=== PATIENT | male | born 2000 | race American Indian/Alaskan Native ===

== ENCOUNTER 2019-09-25 03:32 | Emergency (ER) | payer SELFPAY ==
[2019-09-25 04:08] LABS: CHLORIDE,CL 101 mmol/L (101-111); SODIUM,NA 136 mmol/L (135-145)
[2019-09-25] MEDS ORDERED: Sodium Chloride 0.9% 1,000 ML IV ONE (04:10)
[2019-09-25] MEDS ORDERED: Iopamidol 612 MG/ML 75 ML Bottle IVPUSH ONE (04:10)
--- NOTE | 2019-09-25 04:12 | EDM.PDOC ---
ED HPI GENERAL MEDICAL PROBLEM - General Chief Complaint: Abdominal Pain Stated Complaint: STOMACH PAIN Time Seen by Provider: 09/25/19 04:11 Source of Information: Reports: Patient History Limitations: Reports: No Limitations - History of Present Illness INITIAL COMMENTS - FREE TEXT/NARRATIVE: onset abd pain since noon yesterday. nauseous no vomiting/diarrhoea. Abdomen Pain Score (Numeric/FACES): 10 - Related Data Allergies Allergy/AdvReac Type Severity Reaction Status Date / Time No Known Allergies Allergy Verified 09/25/19 03:37 Home Meds: Home Meds . [No Known Home Meds] 09/25/19 [History] Past Medical History - Past Health History Medical/Surgical History: Denies Medical/Surgical History Social & Family History - Tobacco Use Smoking Status *Q: Current Every Day Smoker Years of Tobacco use: 5 Packs/Tins Daily: 0.2 - Caffeine Use Caffeine Use: Reports: Soda - Recreational Drug Use Recreational Drug Use: No - Living Situation & Occupation Living situation: Reports: with Family Occupation: Student ED ROS GENERAL - Review of Systems Review Of Systems: ROS reveals no pertinent complaints other than HPI. ED EXAM, GI/ABD - Physical Exam Exam: See Below Exam Limited By: No Limitations General Appearance: Alert, WD/WN, Mild Distress, Moderate Distress. No: Active Emesis Ears: Hearing Grossly Normal Throat/Mouth: Normal Voice, No Airway Compromise Head: Atraumatic Neck: Non-Tender, Full Range of Motion Respiratory/Chest: No Respiratory Distress Cardiovascular: Regular Rate, Rhythm GI/Abdominal Exam: Guarding, Rebound, Tender, Other (RLQ>periumb). No: Distended, Rigid Neurological: Alert, Oriented, Normal Cognition, Normal Gait, No Motor/Sensory Deficits Psychiatric: Tearful Skin Exam: Warm, Dry, Normal Color Lymphatic: No Adenopathy Course - Vital Signs Last Recorded V/S: Last Vital Signs Temp 36.8 C 09/25/19 03:38 Pulse 72 09/25/19 04:59 Resp 16 09/25/19 04:59 BP 122/61 09/25/19 03:38 Pulse Ox 100 09/25/19 04:59 - Orders/Labs/Meds Orders: Active Orders 24 hr Category Date Time Status Abdomen Pelvis w Cont [CT] Urgent Exams 09/25/19 04:10 Taken Labs: Laboratory Tests 09/25/19 09/25/1919 Range/Units 03:38 03:38 03:38 WBC 12.4 H (5.0-10.0) 10^3/uL RBC 5.41 (4.6-6.2) 10^6/uL Hgb 16.7 D (14.0-18.0) g/dL Hct 47.3 (40.0-54.0) % MCV 87.4 (80-100) fL MCH 30.9 (27.0-34.0) pg MCHC 35.3 H (33.0-35.0) g/dL Plt Count 270 D (150-450) 10^3/uL Neut % (Auto) 68.1 (42.2-75.2) % Lymph % (Auto) 17.0 L (20.5-50.1) % [place] % (Auto) 11.5 H (2-8) % Eos % (Auto) 3.2 H (1.0-3.0) % Baso % (Auto) 0.2 (0.0-1.0) % Sodium 136 (135-145) mmol/L Potassium 4.0 (3.6-5.0) mmol/L Chloride 101 (101-111) mmol/L Carbon Dioxide 30.0 (21.0-31.0) mmol/L Anion Gap 9.0 BUN 9 (7-18) mg/dL Creatinine 0.8 (0.6-1.3) mg/dL Est Cr Clr Drug Dosing 117.84 mL/min Estimated GFR (MDRD) > 60 BUN/Creatinine Ratio 11.25 Glucose 96 (74-105) mg/dL Calcium 8.9 (8.4-10.2) mg/dl Total Bilirubin 0.6 (0.2-1.0) mg/dL AST 23 (10-42) IU/L ALT 29 (10-60) IU/L Alkaline Phosphatase 99 (42-121) IU/L Total Protein 7.7 (6.7-8.2) g/dl Albumin 4.2 (3.2-5.5) g/dl Globulin 3.5 Albumin/Globulin Ratio 1.20 Amylase 103 H (28-100) U/L Lipase 33 (22-51) U/L Urine Color (YELLOW) Urine Appearance (CLEAR) Urine pH (5.0-9.0) Ur Specific [place] (1.005-1.030) Urine Protein (NEGATIVE) Urine Glucose (UA) (NEGATIVE) Urine Ketones (NEGATIVE) Urine Occult Blood (NEGATIVE) Urine Nitrite (NEGATIVE) Urine Bilirubin (NEGATIVE) Urine Urobilinogen (0.2-1.0) mg/dL Ur Leukocyte Esterase (NEGATIVE) Urine Opiates Screen (NEGATIVE) Ur Oxycodone Screen (NEGATIVE) Urine Methadone Screen (NEGATIVE) Ur Barbiturates Screen (NEGATIVE) U Tricyclic Antidepress (NEGATIVE) Ur Phencyclidine Scrn (NEGATIVE) Ur Amphetamine Screen (NEGATIVE) U Methamphetamines Scrn (NEGATIVE) Urine MDMA Screen (NEGATIVE) U Benzodiazepines Scrn (NEGATIVE) Urine Cocaine Screen (NEGATIVE) U Marijuana (THC) Screen (NEGATIVE) 09/25/19 09/25/19 Range/Units 04:55 04:55 WBC (5.0-10.0) 10^3/uL RBC (4.6-6.2) 10^6/uL Hgb (14.0-18.0) g/dL Hct (40.0-54.0) % MCV (80-100) fL MCH (27.0-34.0) pg MCHC (33.0-35.0) g/dL Plt Count (150-450) 10^3/uL Neut % (Auto) (42.2-75.2) % Lymph % (Auto) (20.5-50.1) % [place] % (Auto) (2-8) % Eos % (Auto) (1.0-3.0) % Baso % (Auto) (0.0-1.0) % Sodium (135-145) mmol/L Potassium (3.6-5.0) mmol/L Chloride (101-111) mmol/L Carbon Dioxide (21.0-31.0) mmol/L Anion Gap BUN (7-18) mg/dL Creatinine (0.6-1.3) mg/dL Est Cr Clr Drug Dosing mL/min Estimated GFR (MDRD) BUN/Creatinine Ratio Glucose (74-105) mg/dL Calcium (8.4-10.2) mg/dl Total Bilirubin (0.2-1.0) mg/dL AST (10-42) IU/L ALT (10-60) IU/L Alkaline Phosphatase (42-121) IU/L Total Protein (6.7-8.2) g/dl Albumin (3.2-5.5) g/dl Globulin Albumin/Globulin Ratio Amylase (28-100) U/L Lipase (22-51) U/L Urine Color Yellow (YELLOW) Urine Appearance Clear (CLEAR) Urine pH 7.0 (5.0-9.0) Ur Specific [place] 1.015 (1.005-1.030) Urine Protein Negative (NEGATIVE) Urine Glucose (UA) Negative (NEGATIVE) Urine Ketones Negative (NEGATIVE) Urine Occult Blood Negative (NEGATIVE) Urine Nitrite Negative (NEGATIVE) Urine Bilirubin Negative (NEGATIVE) Urine Urobilinogen 1.0 (0.2-1.0) mg/dL Ur Leukocyte Esterase Negative (NEGATIVE) Urine Opiates Screen Negative (NEGATIVE) Ur Oxycodone Screen Negative (NEGATIVE) Urine Methadone Screen Negative (NEGATIVE) Ur Barbiturates Screen Negative (NEGATIVE) U Tricyclic Antidepress Negative (NEGATIVE) Ur Phencyclidine Scrn Negative (NEGATIVE) Ur Amphetamine Screen Positive H (NEGATIVE) U Methamphetamines Scrn Positive H (NEGATIVE) Urine MDMA Screen Negative (NEGATIVE) U Benzodiazepines Scrn Negative (NEGATIVE) Urine Cocaine Screen Negative (NEGATIVE) U Marijuana (THC) Screen Positive H (NEGATIVE) Meds: Medications Discontinued Medications Generic Name Dose Route Start Last Admin Trade Name Surinder PRN Reason Stop Dose Admin Hydromorphone HCl 1 mg 09/25/19 05:05 Dilaudid IVPUSH 09/25/19 05:06 ONETIME ONE Sodium Chloride 1,000 mls @ 999 mls/hr 09/25/19 04:10 09/25/19 04:12 Normal Saline IV 09/25/19 05:10 999 mls/hr .BOLUS ONE Administration Iopamidol 75 ml 09/25/19 04:10 09/25/19 04:22 Isovue-300 (61%) IVPUSH 09/25/19 04:11 75 ml ONETIME ONE Administration Ondansetron HCl 4 mg 09/25/19 05:05 09/25/19 05:10 Zofran IV 09/25/19 05:06 4 mg ONETIME ONE Administration - Re-Assessments/Exams Free Text/Narrative Re-Assessment/Exam: 09/25/19 05:[address] Schmidt surgeon @ who kindly accepted pt. Departure - Departure Time of Disposition: 05:18 Disposition: DC/Tfer to Acute Hospital 02 Condition: Good Clinical Impression: Appendicitis Qualifiers: Appendicitis type: acute appendicitis Acute appendicitis type: with localized peritonitis Appendicitis gangrene presence: without gangrene Appendicitis perforation presence: without perforation Appendicitis abscess presence: without abscess Qualified Code(s): K35.30 - Acute appendicitis with localized peritonitis, without perforation or gangrene - Discharge Information Forms: Interfacility Transfer EMTALA - My Orders Last 24 Hours: My Active Orders 09/25/19 04:10 Abdomen Pelvis w Cont [CT] Urgent - Assessment/Plan Last 24 Hours: My Active Orders 09/25/19 04:10 Abdomen Pelvis w Cont [CT] Urgent
[2019-09-25] MEDS ORDERED: Ondansetron 4 MG/2 ML SDV IV ONE (05:05)
[2019-09-25] MEDS ORDERED: HYDROmorphone 1 MG/ML Syringe IVPUSH ONE (05:05)
[2019-09-25 06:17] VITALS: PULSE 68
[2019-09-25 06:18] VITALS: BP 122/63
== END 2019-09-25 06:08 ==
LOC: DL.ED 03:32
DX: K35.30 Acute appendicitis with localized peritonitis, without perforation or gangrene (principal); F17.210 Nicotine dependence, cigarettes, uncomplicated
CPT/HCPCS: 36415; 74177; 80053; 80305; 81003; 82150; 83690; 85025; 96360; 96374; 96375; 99285; J1170; J2405; J7030; Q9967; 99284

== ENCOUNTER 2019-09-28 11:43 | Emergency (ER) | payer SELFPAY ==
--- NOTE | 2019-09-28 09:52 | EDM.PDOC ---
ED HPI GENERAL MEDICAL PROBLEM - General Chief Complaint: Abdominal Pain Stated Complaint: AMBULANCE/ABDOMINAL PAIN Time Seen by Provider: 09/28/19 09:55 Source of Information: Reports: Patient History Limitations: Reports: No Limitations - History of Present Illness INITIAL COMMENTS - FREE TEXT/NARRATIVE: This 19 yo male patient was brought to the ED by [facility] from the [facility] due to increased abdominal pain and abdominal rigidity. The patient reports his current pain is an 8/10 mostly in the left lower quadrant. The patient was given Zofran and Fentanyl by EMS prior to arrival. The patient reports his pain was a 10/10 prior to the medications given by EMS. The patient was sent to in [place] on Wednesday (09/25/19) due to an acute appendicitis. The patient had an appendectomy on that day and was released from on 09/25/19 after surgery. The patient reports he was released with a script for Oxycodone (5/325) #10. The patient reports he has been taking 1/2 of a pill every 6 hours and they have helped him sleep, but is currently out of pain medications. The patient reports he has not had a bowel movement since before surgery on 09/25/19. Onset: Gradual Onset Date: 09/25/19 Duration: Constant Location: Reports: Abdomen (LLQ) Quality: Reports: Ache, Pressure Severity: Severe Improves with: Reports: Medication (Pain medications given by EMS) Worsens with: Reports: None Context: Reports: Other Associated Symptoms: Reports: Nausea/Vomiting (Nausea no vomiting improved after Zofran (given by EMS)) Left Lower Abdomen Pain Score (Numeric/FACES): 8 - Related Data Allergies Allergy/AdvReac Type Severity Reaction Status Date / Time No Known Allergies Allergy Verified 09/28/19 09:37 Home Meds: Home Meds Docusate Sodium [Stool Softener] 50 mg PO 09/28/19 [History] Ibuprofen 600 mg PO Q6HR PRN 09/28/19 [History] oxyCODONE 2.5 mg PO Q6HR PRN 09/28/19 [History] Past Medical History - Past Health History Medical/Surgical History: Denies Medical/Surgical History Social & Family History - Caffeine Use Caffeine Use: Reports: Soda - Living Situation & Occupation Living situation: Reports: with Family Occupation: Student ED ROS GENERAL - Review of Systems Review Of Systems: ROS reveals no pertinent complaints other than HPI. ED EXAM, GI/ABD - Physical Exam Exam: See Below Exam Limited By: No Limitations General Appearance: Alert, WD/WN, Moderate Distress, Thin Eyes: Bilateral: Normal Appearance (sluggish, but reactive), EOMI Ears: Normal External Exam, Normal Canal, Hearing Grossly Normal, Normal TMs Nose: Normal Inspection, Normal Mucosa, No Blood Throat/Mouth: Normal Inspection, Normal Lips, Normal Teeth, Normal Gums, Normal Oropharynx, Normal Voice, No Airway Compromise Head: Atraumatic, Normocephalic Neck: Normal Inspection, Supple, Non-Tender, Full Range of Motion Respiratory/Chest: No Respiratory Distress, Lungs Clear, Normal Breath Sounds, No Accessory Muscle Use, Chest Non-Tender Cardiovascular: Normal Peripheral Pulses, Regular Rate, Rhythm, No Edema, No Gallop, No JVD, No Murmur, No Rub GI/Abdominal Exam: Normal Bowel Sounds, No Abnormal Bruit, No Mass, Pelvis Stable, Guarding, Rigid, Tender (LLQ), Other (Surgical incision sites look to be healing well with no current erythema or drainage. ) (Male) Exam: Deferred Rectal (Males) Exam: Deferred Back Exam: Normal Inspection, Full Range of Motion, NT Extremities: Normal Inspection, Normal Range of Motion, Non-Tender, Normal Capillary Refill, No Pedal Edema Neurological: Alert, Oriented, CN II-XII Intact, Normal Cognition, Normal Gait, Normal Reflexes, No Motor/Sensory Deficits Psychiatric: Normal Affect, Normal Mood Skin Exam: Warm, Dry, Intact, Normal Color, No Rash Lymphatic: No Adenopathy Course - Vital Signs Last Recorded V/S: Last Vital Signs Temp 37.0 C 09/28/19 11:32 Pulse 88 09/28/19 11:32 Resp 18 09/28/19 11:32 BP 104/50 L 09/28/19 11:32 Pulse Ox 98 09/28/19 11:32 - Orders/Labs/Meds Orders: Active Orders 24 hr Category Date Time Status Communication Order [RC] ROUTINE Care 09/28/19 10:14 Active Abdomen Pelvis w Cont [CT] Urgent Exams 09/28/19 10:34 Ordered Labs: Laboratory Tests 09/28/19 09/28/19 09/28/19 Range/Units 09:50 09:50 09:50 WBC 11.3 H (5.0-10.0) 10^3/uL RBC 5.14 (4.6-6.2) 10^6/uL Hgb 15.8 (14.0-18.0) g/dL Hct 44.9 (40.0-54.0) % MCV 87.4 (80-100) fL MCH 30.7 (27.0-34.0) pg MCHC 35.2 H (33.0-35.0) g/dL Plt Count 244 (150-450) 10^3/uL Neut % (Auto) 76.7 H (42.2-75.2) % Lymph % (Auto) 10.3 L (20.5-50.1) % [place] % (Auto) 11.2 H (2-8) % Eos % (Auto) 1.6 (1.0-3.0) % Baso % (Auto) 0.2 (0.0-1.0) % Sodium 137 (135-145) mmol/L Potassium 3.7 (3.6-5.0) mmol/L Chloride 103 (101-111) mmol/L Carbon Dioxide 26.0 (21.0-31.0) mmol/L Anion Gap 11.7 BUN 7 (7-18) mg/dL Creatinine 0.7 (0.6-1.3) mg/dL Est Cr Clr Drug Dosing 137.16 mL/min Estimated GFR (MDRD) > 60 BUN/Creatinine Ratio 10.00 Glucose 93 (74-105) mg/dL Lactic Acid 1.0 (0.5-2.2) mmol/L Calcium 8.7 (8.4-10.2) mg/dl Total Bilirubin 0.7 (0.2-1.0) mg/dL AST 27 (10-42) IU/L ALT 35 (10-60) IU/L Alkaline Phosphatase 73 (42-121) IU/L Total Protein 6.8 (6.7-8.2) g/dl Albumin 3.6 (3.2-5.5) g/dl Globulin 3.2 Albumin/Globulin Ratio 1.13 Urine Color (YELLOW) Urine Appearance (CLEAR) Urine pH (5.0-9.0) Ur Specific [place] (1.005-1.030) Urine Protein (NEGATIVE) Urine Glucose (UA) (NEGATIVE) Urine Ketones (NEGATIVE) Urine Occult Blood (NEGATIVE) Urine Nitrite (NEGATIVE) Urine Bilirubin (NEGATIVE) Urine Urobilinogen (0.2-1.0) mg/dL Ur Leukocyte Esterase (NEGATIVE) Urine Opiates Screen (NEGATIVE) Ur Oxycodone Screen (NEGATIVE) Urine Methadone Screen (NEGATIVE) Ur Barbiturates Screen (NEGATIVE) U Tricyclic Antidepress (NEGATIVE) Ur Phencyclidine Scrn (NEGATIVE) Ur Amphetamine Screen (NEGATIVE) U Methamphetamines Scrn (NEGATIVE) Urine MDMA Screen (NEGATIVE) U Benzodiazepines Scrn (NEGATIVE) Urine Cocaine Screen (NEGATIVE) U Marijuana (THC) Screen (NEGATIVE) 09/28/19 09/28/19 Range/Units 10:38 10:38 WBC (5.0-10.0) 10^3/uL RBC (4.6-6.2) 10^6/uL Hgb (14.0-18.0) g/dL Hct (40.0-54.0) % MCV (80-100) fL MCH (27.0-34.0) pg MCHC (33.0-35.0) g/dL Plt Count (150-450) 10^3/uL Neut % (Auto) (42.2-75.2) % Lymph % (Auto) (20.5-50.1) % [place] % (Auto) (2-8) % Eos % (Auto) (1.0-3.0) % Baso % (Auto) (0.0-1.0) % Sodium (135-145) mmol/L Potassium (3.6-5.0) mmol/L Chloride (101-111) mmol/L Carbon Dioxide (21.0-31.0) mmol/L Anion Gap BUN (7-18) mg/dL Creatinine (0.6-1.3) mg/dL Est Cr Clr Drug Dosing mL/min Estimated GFR (MDRD) BUN/Creatinine Ratio Glucose (74-105) mg/dL Lactic Acid (0.5-2.2) mmol/L Calcium (8.4-10.2) mg/dl Total Bilirubin (0.2-1.0) mg/dL AST (10-42) IU/L ALT (10-60) IU/L Alkaline Phosphatase (42-121) IU/L Total Protein (6.7-8.2) g/dl Albumin (3.2-5.5) g/dl Globulin Albumin/Globulin Ratio Urine Color Yellow (YELLOW) Urine Appearance Clear (CLEAR) Urine pH 6.5 (5.0-9.0) Ur Specific [place] 1.015 (1.005-1.030) Urine Protein Negative (NEGATIVE) Urine Glucose (UA) Negative (NEGATIVE) Urine Ketones Negative (NEGATIVE) Urine Occult Blood Negative (NEGATIVE) Urine Nitrite Negative (NEGATIVE) Urine Bilirubin Negative (NEGATIVE) Urine Urobilinogen 0.2 (0.2-1.0) mg/dL Ur Leukocyte Esterase Negative (NEGATIVE) Urine Opiates Screen Negative (NEGATIVE) Ur Oxycodone Screen Positive H (NEGATIVE) Urine Methadone Screen Negative (NEGATIVE) Ur Barbiturates Screen Negative (NEGATIVE) U Tricyclic Antidepress Negative (NEGATIVE) Ur Phencyclidine Scrn Negative (NEGATIVE) Ur Amphetamine Screen Positive H (NEGATIVE) U Methamphetamines Scrn Positive H (NEGATIVE) Urine MDMA Screen Negative (NEGATIVE) U Benzodiazepines Scrn Negative (NEGATIVE) Urine Cocaine Screen Negative (NEGATIVE) U Marijuana (THC) Screen Positive H (NEGATIVE) Meds: Medications Discontinued Medications Generic Name Dose Route Start Last Admin Trade Name Freq PRN Reason Stop Dose Admin Hydromorphone HCl 0.5 mg 09/28/19 09:58 09/28/19 10:04 Dilaudid IVPUSH 09/28/19 09:59 0.5 mg ONETIME ONE Administration Iopamidol 75 ml 09/28/19 10:34 09/28/19 11:17 Isovue-300 (61%) IVPUSH 09/28/19 10:35 75 ml ONETIME ONE Administration Ketorolac Tromethamine 30 mg 09/28/19 11:38 Toradol IVPUSH 09/28/19 11:39 ONETIME ONE - Re-Assessments/Exams Free Text/Narrative Re-Assessment/Exam: 09/28/19 11:07 The patient was advised of the lab results during the visit. When the patient was advised of his drug screen results (positive for amphetamines, methamphetamines and marijuana), the patient reports he was smoking a "joint" a couple of days ago that "tasted strange." The patient was advised that using methamphetamines can cause additional complications which can result in a delay of his healing. A CT of the patient's abdomen was ordered at that time. Departure - Departure Time of Disposition: 11:40 Disposition: Home, Self-Care 01 Condition: Fair Clinical Impression: Postoperative generalized abdominal pain - Discharge Information *PRESCRIPTION DRUG MONITORING PROGRAM REVIEWED*: Not Applicable *COPY OF PRESCRIPTION DRUG MONITORING REPORT IN PATIENT SENTHIL: Not Applicable Forms: ED Department Discharge Care Plan Goals: The patient and family were advised of the examination, lab and CT results during the visit. The patient was given an IV dose of dilaudid and an IV dose of Toradol while in the ED. The patient was encouraged to use warm packs to his abdomen. The patient was encouraged to take Tylenol or ibuprofen for temporary symptom relief. If the patient has any additional symptoms or concerns, the patient should either visit his primary care facility or return to the emergency department. - My Orders Last 24 Hours: My Active Orders 09/28/19 10:14 Communication Order [RC] ROUTINE 09/28/19 10:34 Abdomen Pelvis w Cont [CT] Urgent - Assessment/Plan Last 24 Hours: My Active Orders 09/28/19 10:14 Communication Order [RC] ROUTINE 09/28/19 10:34 Abdomen Pelvis w Cont [CT] Urgent
[2019-09-28] MEDS: HYDROmorphone 1 MG/ML Syringe IVPUSH ONE (10:04)
[2019-09-28 10:18] LABS: ANION GAP 11.7; CHLORIDE,CL 103 mmol/L (101-111); SODIUM,NA 137 mmol/L (135-145)
[2019-09-28] MEDS: Iopamidol 612 MG/ML 75 ML Bottle IVPUSH ONE (11:17)
[2019-09-28 11:34] VITALS: BP 104/50; PULSE 88
[2019-09-28] MEDS: Ketorolac 30 MG/ML SDV IVPUSH ONE (11:43)
--- NOTE | 2019-09-28 12:14 | CT ---
EXAMINATION: Abdomen Pelvis w Cont SEX: Male AGE: 19 years CLINICAL HISTORY: 19-year-old male 4 days post appendectomy complaining of left sided ABDOMINAL PAIN. This slender afebrile postop patient has a WBC 11,500. Scan technique: Volume acquisition of data emergency CT scan abdomen and pelvis obtained without oral contrast but during intravenous infusion 75 cc nonionic Isovue contrast (4 cc/s via injector) while patient was lying supine on the Siemens multislice scanner [place], [place]. All data archived in the PACS system for storage, reformatting axial/sagittal/coronal planes and study. Interpretation: 1. *Long elliptical extraperitoneal collection of SUBCUTANEOUS air (anterior abdominal wall) extending over 16 cm length, anterolaterally, left abdomen (from a plane through the mid pelvis up through the lower costochondral juncture on the left). 2. Large volume persistent free intraperitoneal air around the upper abdominal viscera and lower abdomen (surgical clips RLQ). 3. No abdominal soft tissue mass or suggestion of abscess. No mechanical bowel obstruction. 4. Gallbladder, liver, stomach, spleen, pancreas and adrenal glands unremarkable. 5. Normal reniform size, axis and configuration. No renal cortical mass lesion, nephrolithiasis or obstructive uropathy. 6. Normal caliber aortoiliac vessels. Lumbar spine unremarkable. Normal bladder. 7. Normal cardiac silhouette. Lung bases clear. CONCLUSION: Postoperative (iatrogenic) subcutaneous air left abdomen and intraperitoneal air. Surgical clips RLQ consistent with recent appendectomy. No sign of mechanical bowel obstruction or acute peritonitis. Lung bases clear.
== END 2019-09-28 11:53 | disposition home or self-care (01) ==
LOC: DL.ED 11:43
DX: G89.18 Other acute postprocedural pain (principal); R10.84 Generalized abdominal pain
CPT/HCPCS: 36415; 74177; 80053; 80305; 81003; 83605; 85025; 96374; 96375; 99285; J1170; J1885; Q9967

== ENCOUNTER 2020-04-22 16:11 | Emergency (ER) | payer SELFPAY ==
[2020-04-22 16:25] VITALS: BP 107/80; PULSE 97
[2020-04-22] MEDS ORDERED: Bacitracin Oint 1 GM U/D Packet TOP ONE (16:37)
[2020-04-22] MEDS ORDERED: Lidocaine 1% 30 ML SDV INJECT ONE (16:37)
--- NOTE | 2020-04-22 17:10 | EDM.PDOC ---
Scribed by Dasha Frank 04/22/20 1710 for Na Silvestre NP ED HPI GENERAL MEDICAL PROBLEM - General Chief Complaint: Laceration Stated Complaint: laceration on left hand Time Seen by Provider: 04/22/20 16:30 Source of Information: Reports: Patient, RN, RN Notes Reviewed History Limitations: Reports: No Limitations - History of Present Illness INITIAL COMMENTS - FREE TEXT/NARRATIVE: Patient presents to ER with complaint that he has a cut to the left pointer finger. States he was making a tattoo gun when he slipped and cut the finger. States tetanus is up to date. States it was a straight blade clean kitchen knife. Onset: Today Location: Reports: Upper Extremity, Left Quality: Reports: Ache Severity: Mild Improves with: Reports: None Worsens with: Reports: None Associated Symptoms: Reports: No Other Symptoms left first digit Pain Score (Numeric/FACES): 10 - Related Data Allergies Allergy/AdvReac Type Severity Reaction Status Date / Time No Known Allergies Allergy Verified 04/22/20 16:29 Home Meds: Home Meds . [No Known Home Meds] 04/22/20 [History] Past Medical History - Past Health History Medical/Surgical History: Denies Medical/Surgical History Social & Family History - Caffeine Use Caffeine Use: Reports: Soda - Living Situation & Occupation Living situation: Reports: with Family Occupation: Student ED ROS GENERAL - Review of Systems Review Of Systems: Comprehensive ROS is negative, except as noted in HPI. ED EXAM, SKIN/RASH Exam: See Below Exam Limited By: No Limitations General Appearance: Alert, WD/WN, No Apparent Distress Eye Exam: Bilateral Eye: EOMI, Normal Inspection, PERRL Ears: Normal External Exam, Normal Canal, Hearing Grossly Normal, Normal TMs Nose: Normal Inspection, Normal Mucosa, No Blood Throat/Mouth: Normal Inspection, Normal Lips, Normal Teeth, Normal Gums, Normal Oropharynx, Normal Voice, No Airway Compromise Head: Atraumatic, Normocephalic Neck: Normal Inspection, Supple, Non-Tender, Full Range of Motion Respiratory/Chest: No Respiratory Distress, Lungs Clear, Normal Breath Sounds, No Accessory Muscle Use, Chest Non-Tender Cardiovascular: Normal Peripheral Pulses, Regular Rate, Rhythm, No Edema, No Gallop, No JVD, No Murmur, No Rub GI/Abdominal: Normal Bowel Sounds, Soft, Non-Tender, No Organomegaly, No Distention, No Abnormal Bruit, No Mass (Male) Exam: Deferred Rectal (Males) Exam: Deferred Back Exam: Normal Inspection, Full Range of Motion, NT Extremities: Other (see skin) Neurological: Alert, Oriented, CN II-XII Intact, Normal Cognition, Normal Gait, Normal Reflexes, No Motor/Sensory Deficits Psychiatric: Normal Affect, Normal Mood Skin: Warm, Dry, Other (3cm laceration to the left index finger) Location, Skin: Upper Extremity, Left Lymphatic: No Adenopathy ED SKIN PROCEDURES - Laceration/Wound Repair Left Lateral Digit - 2nd (Index) Appearance: Subcutaneous Distal NVT: Neuro & Vascular Intact Anesthetic Type: Local Local Anesthesia - Lidocaine (Xylocaine): 1% Plain Local Anesthetic Volume: 2cc Skin Prep: Chlorhexidine (Hibiciens) Exploration/Debridement/Repair: Wound Explored, In a Bloodless Field, Explored to Base, No Foreign Material Found Closed with: Sutures Lac/Wound length In cm: 3 Suture Size: 4-0 # of Sutures: 7 Suture Type: Nylon, Interrupted Drain Placement: No Sterile Dressing Applied: Nurse Tetanus Status Addressed: Yes Complications: No Course - Vital Signs Last Recorded V/S: Last Vital Signs Temp 98.8 F 04/22/20 16:24 Pulse 97 04/22/20 16:24 Resp 16 04/22/20 16:24 BP 107/80 04/22/20 16:24 Pulse Ox 97 04/22/20 16:24 - Orders/Labs/Meds Meds: Medications Discontinued Medications Generic Name Dose Route Start Last Admin Trade Name Surinder PRN Reason Stop Dose Admin Bacitracin 1 dose 04/22/20 16:37 04/22/20 16:54 Bacitracin Oint 1 Gm TOP 04/22/20 16:38 1 dose ONETIME ONE Administration Lidocaine HCl 30 ml 04/22/20 16:37 04/22/20 16:53 Xylocaine-Mpf 1% INJECT 04/22/20 16:38 2 ml ONETIME ONE Administration Departure - Departure Time of Disposition: 17:09 Disposition: Home, Self-Care 01 Condition: Good Clinical Impression: Laceration - Discharge Information *PRESCRIPTION DRUG MONITORING PROGRAM REVIEWED*: No *COPY OF PRESCRIPTION DRUG MONITORING REPORT IN PATIENT SENTHIL: No Instructions: Laceration Care, Adult, [id number], Sutures, [place], or Adhesive Wound Closure, [id number] Forms: ED Department Discharge Additional Instructions: Keep area clean and dry Follow up with your primary care facility in 7-10 days to have sutures removed Monitor for signs of infection (redness, swelling, drainage, fever or chills) Sepsis Event Note - Focused Exam Vital Signs: Vital Signs Temp Pulse Resp BP Pulse Ox 04/22/20 16:24 98.8 F 97 16 107/80 97 Date Exam was Performed: 04/22/20 Time Exam was Performed: 17:10 I have read and agree with the documentation that has been completed regarding this visit. By signing this record, I attest that the documentation was completed in my physical presence and is an accurate record of the encounter.
== END 2020-04-22 17:20 | disposition home or self-care (01) ==
LOC: DL.ED 16:11
DX: S61.211A Laceration without foreign body of left index finger without damage to nail, initial encounter (principal); W26.0XXA Contact with knife, initial encounter
CPT/HCPCS: 12002; 12032; 99282; 99282-25; J2001

== ENCOUNTER 2022-05-09 21:33 | Emergency (ER) | payer SELFPAY ==
[2022-05-09] MEDS ORDERED: Bacitracin Oint 1 GM U/D Packet TOP ONE (21:42)
[2022-05-09] MEDS ORDERED: Lidocaine 1% 30 ML SDV ONE (21:47)
[2022-05-09 21:49] VITALS: BP 114/82; PULSE 89
[2022-05-09] MEDS ORDERED: Lidocaine 1% 30 ML SDV INJECT ONE (21:52)
== END 2022-05-09 22:08 | disposition home or self-care (01) ==
LOC: DL.ED 21:33
DX: S61.512A Laceration without foreign body of left wrist, initial encounter (principal); F17.210 Nicotine dependence, cigarettes, uncomplicated; W26.8XXA Contact with other sharp object(s), not elsewhere classified, initial encounter; Y92.009 Unspecified place in unspecified non-institutional (private) residence as the place of occurrence of the external cause
CPT/HCPCS: 12002; 99282-25; 99283

== ENCOUNTER 2022-07-15 17:58 | Emergency (ER) | payer SELFPAY ==
[2022-07-15] MEDS: Bacitracin Oint 1 GM U/D Packet TOP ONE (18:45)
[2022-07-15 19:16] VITALS: BP 163/76; PULSE 71
[2022-07-15 20:16] LABS: CHLORIDE,CL 104 mmol/L (98-107); SODIUM,NA 141 mmol/L (136-145)
[2022-07-15 20:35] LABS: ESTIMATED GFR 77 mL/min (>=60)
== END 2022-07-15 19:57 | disposition left against medical advice (07) ==
LOC: DL.ED 17:58
DX: S06.5X0A Traumatic subdural hemorrhage without loss of consciousness, initial encounter (principal); S01.01XA Laceration without foreign body of scalp, initial encounter; S81.812A Laceration without foreign body, left lower leg, initial encounter; S41.112A Laceration without foreign body of left upper arm, initial encounter; F17.210 Nicotine dependence, cigarettes, uncomplicated; Y04.0XXA Assault by unarmed brawl or fight, initial encounter
CPT/HCPCS: 36415; 70450; 72125; 80053; 80307; 85025; 99284